=== PATIENT | male | born 1955 | race African-American/Black ===

== ENCOUNTER 2016-11-13 01:38 | Emergency (ER) | payer MEDICARE, MEDICAID ==
[~2016-11-13] VITALS: Ht 180.3 cm; Wt 85.7 kg
[~2016-11-13 01:38] MED LIST: ATENOLOL25 MG ORAL; ATORVASTATIN CA10 MG ORAL; AZITHROMYCIN250 MG ORAL; CELEBREX100 MG PO; CEPHALEXIN500 MG ORAL; CIPROFLOXACIN500 M2 ORAL; DICLOFENAC SODI25 MG ORAL; DILAUDID4 MG ORAL; GLUCOTROL XL5 MG PO; KEFLEX500 MG ORAL; LISINOPRIL20 MG ORAL; METFORMIN HCL500 M1 ORAL; NAPROXEN500 M2 ORAL; NKM; PHENERGAN6.25 MG/5 ORAL; SIMVASTATIN5 MG PO; SPIRIVA18 MCG INH; VICODIN1 TAB PO; VITAMIN AND MI1 EACH PO; ZINC SULFATE220 M1 ORAL; ZYPREXA
[2016-11-13 02:00] VITALS: BP 145/89
[2016-11-13] MEDS ORDERED: GABAPENTIN300 MG ORAL (02:44)
--- NOTE | 2016-11-13 02:44 | Emergency Room Report ---
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 For last 4 days he complaining of neck pain and pain going down his left shoulder and arm. Not trauma. Pain is throbbing in nature. Pain medication not helping. No trauma. No fever chill. Pain is 9/10. Sharp in nature. Allergies: Coded Allergies: No Known Allergies (Verified , 09/27/06) Patient History Past Medical History: see triage record, old chart reviewed Past Surgical History: other Pertinent Family History: none Social History: Denies: smoking Immunizations: other Reviewed Nursing Documentation: PMH: Agreed, PSxH: Agreed Nursing Documentation-PMH Hx Cardiac Problems: Yes Hx Hypertension: Yes - HYPERLIPIDEMIA Hx Pacemaker: No Hx Asthma: No Hx COPD: Yes Hx Diabetes: Yes Hx Cancer: Yes - PROSTATE CANCER Hx Gastrointestinal Problems: No Hx Dialysis: No Hx Neurological Problems: No Hx Cerebrovascular Accident: No Hx Seizures: No Review of Systems Eye: Denies: blurred vision, eye pain ENT: Denies: ear pain, nose congestion, throat swelling Respiratory: Denies: cough, shortness of breath Cardiovascular: Denies: chest pain, palpitations Gastrointestinal: Denies: abdominal pain, diarrhea, nausea, vomiting Musculoskeletal: Denies: back pain, joint pain Skin: Denies: rash Neurological: Denies: headache, numbness Endocrine: Denies: increased thirst, increased urine Hematologic/Lymphatic: Denies: easy bruising All Other Systems: negative except mentioned in HPI Physical Exam Vital Signs Date Time Temp Pulse Resp B/P Pulse Ox O2 Delivery O2 Flow Rate FiO2 11/13/16 01:54 98.4 68 18 157/92 97 Room Air vitals with htn Sp02 EP Interpretation: reviewed, normal General Appearance: well appearing, no apparent distress, alert Head: normocephalic, atraumatic Eyes: bilateral eye EOMI, bilateral eye PERRL ENT: hearing grossly normal, normal pharynx Neck: full range of motion, supple, no meningismus Respiratory: chest non-tender, lungs clear, normal breath sounds Cardiovascular #1: regular rate, rhythm, no murmur Gastrointestinal: normal bowel sounds, non tender, no mass, no organomegaly, no bruit, non-distended Musculoskeletal: back normal, gait/station normal, normal range of motion Psychiatric: mood/affect normal Skin: warm/dry Medical Decision Making Diagnostic Impression: Primary Impression: Cervical radiculopathy ER Course Present with radiculopathy of the cervical spine. No evidence of cauda equina syndrome, spinal epidural abscess or neoplastic process. We'll discharge home. Last Vital Signs Date Time Temp Pulse Resp B/P Pulse Ox O2 Delivery O2 Flow Rate FiO2 11/13/16 01:54 98.4 68 18 157/92 97 Room Air Status: improved Disposition: HOME, SELF-CARE Condition: Stable Scripts Gabapentin* (GABAPENTIN*) 300 Mg Capsule 300 MG ORAL THREE TIMES A DAY, #60 CAP 0 Refills Prov: KWAN TALLEY M.D. 11/13/16 Additional Instructions: Followup with your Dr. in 7 days. Return if worse. KWAN TALLEY M.D. Nov 13, 2016 02:44
[2016-11-13] MEDS ORDERED: Ketorolac 60mg Inj IM ONE (02:45)
[2016-11-13 02:55] VITALS: BP 130/79
== END 2016-11-13 02:55 | disposition home or self-care (01) ==
LOC: EMR 02:20
DX: M54.12 Radiculopathy, cervical region (principal); M51.36 Other intervertebral disc degeneration, lumbar region; E78.5 Hyperlipidemia, unspecified; J44.9 Chronic obstructive pulmonary disease, unspecified; E11.9 Type 2 diabetes mellitus without complications; Z85.46 Personal history of malignant neoplasm of prostate
CPT/HCPCS: 96372; 99283

== ENCOUNTER 2017-01-05 13:06 | Emergency (ER) | payer MEDICARE, MEDICAID ==
[~2017-01-05] VITALS: Ht 180.3 cm; Wt 85.3 kg
[~2017-01-05 13:06] MED LIST changes: +GABAPENTIN300 MG ORAL
[2017-01-05 13:09] VITALS: BP 141/91
[2017-01-05] MEDS ORDERED: NKM (13:14)
[2017-01-05] MEDS ORDERED: Methocarbamol 750mg tab ORAL ONE (13:30)
[2017-01-05] MEDS ORDERED: Ketorolac 30mg Inj IM ONE (13:30)
[2017-01-05] MEDS ORDERED: ROBAXIN-750750 MG PO (14:04)
[2017-01-05] MEDS ORDERED: IBUPROFEN600 MG ORAL (14:04)
[2017-01-05 14:09] VITALS: BP 137/90
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
== END 2017-01-05 14:25 | disposition home or self-care (01) ==
LOC: EMR 13:43
DX: S16.1XXA Strain of muscle, fascia and tendon at neck level, initial encounter (principal); V78.6XXA Passenger on bus injured in noncollision transport accident in traffic accident, initial encounter; Y92.811 Bus as the place of occurrence of the external cause; I10 Essential (primary) hypertension; J44.9 Chronic obstructive pulmonary disease, unspecified; Z85.46 Personal history of malignant neoplasm of prostate; E11.9 Type 2 diabetes mellitus without complications; E78.5 Hyperlipidemia, unspecified
CPT/HCPCS: 96372; 99284; J1885

== ENCOUNTER 2017-01-08 02:12 | Emergency (ER) | payer MEDICARE, MEDICAID ==
[~2017-01-08] VITALS: Ht 182.9 cm; Wt 81.6 kg
[~2017-01-08 02:12] MED LIST changes: +IBUPROFEN600 MG ORAL; +ROBAXIN-750750 MG PO
[2017-01-08 02:43] VITALS: BP 145/90
[2017-01-08] MEDS ORDERED: Norco 5mg/325mg tab ORAL ONE (02:45)
[2017-01-08] MEDS ORDERED: CYCLOBENZAPRINE10 MG ORAL (02:45)
[2017-01-08] MEDS ORDERED: Cyclobenzaprine 10mg Tab ORAL ONE (02:45)
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
[2017-01-08 02:51] VITALS: BP 145/90
== END 2017-01-08 02:50 | disposition home or self-care (01) ==
LOC: EMR 02:44
DX: S16.1XXA Strain of muscle, fascia and tendon at neck level, initial encounter (principal); W22.8XXA Striking against or struck by other objects, initial encounter; Y92.811 Bus as the place of occurrence of the external cause; J44.9 Chronic obstructive pulmonary disease, unspecified; I10 Essential (primary) hypertension; E78.5 Hyperlipidemia, unspecified; E11.9 Type 2 diabetes mellitus without complications; Z85.46 Personal history of malignant neoplasm of prostate
CPT/HCPCS: 99283

== ENCOUNTER 2017-02-19 01:04 | Emergency (ER) | payer MEDICARE, MEDICAID ==
[~2017-02-19] VITALS: Ht 180.3 cm; Wt 86.2 kg
[~2017-02-19 01:04] MED LIST changes: +CYCLOBENZAPRINE10 MG ORAL
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
[2017-02-19] MEDS ORDERED: PERCOCET 5-3251 EACH ORAL (01:33)
[2017-02-19 01:42] VITALS: BP 151/91
[2017-02-19] MEDS ORDERED: oxyCODONE HCL/Acetaminophen 5/325mg ORAL ONE (01:45)
== END 2017-02-19 01:42 | disposition home or self-care (01) ==
LOC: EMR 01:26
DX: M54.2 Cervicalgia (principal); G89.29 Other chronic pain; J44.9 Chronic obstructive pulmonary disease, unspecified; E71.19 Other disorders of branched-chain amino-acid metabolism; Z85.46 Personal history of malignant neoplasm of prostate
CPT/HCPCS: 99283

== ENCOUNTER 2017-02-28 21:53 | Emergency (ER) | payer MEDICARE, MEDICAID ==
[~2017-02-28] VITALS: Ht 180.3 cm; Wt 86.2 kg
[~2017-02-28 21:53] MED LIST changes: +PERCOCET 5-3251 EACH ORAL
[2017-02-28] MEDS ORDERED: NORCO 5-325 TA1 EACH ORAL (22:27)
[2017-02-28] MEDS ORDERED: COLACE100 MG ORAL (23:11)
--- NOTE | 2017-02-28 23:16 | Emergency Room Report ---
History of Present Illness General Chief Complaint: Skin Rash/Abscess Source: Patient Present Illness HPI Patient is 61-year-old male who presented after increased rectal area along. Patient noted this earlier in the day. Patient stated he had prior history of prostate cancer. Patient states he is followed by oncologist. He denied any abdominal pain. He had not been having fever. Patient denied any bleeding or redness to the area. Patient is type II diabetic. Allergies: Coded Allergies: CODEINE (Verified Allergy, Unknown, 02/19/17) Patient History Past Medical History: see triage record Reviewed Nursing Documentation: PMH: Agreed, PSxH: Agreed Nursing Documentation-PMH Hx Cardiac Problems: Yes Hx Hypertension: Yes - HYPERLIPIDEMIA Hx Pacemaker: No Hx Asthma: No Hx COPD: Yes Hx Diabetes: Yes - TYPE 2 Hx Cancer: Yes - PROSTATE CANCER (SURGERY) Hx Gastrointestinal Problems: No Hx Dialysis: No Hx Neurological Problems: No Hx Cerebrovascular Accident: No Hx Seizures: No Review of Systems All Other Systems: negative except mentioned in HPI Physical Exam Vital Signs Date Time Temp Pulse Resp B/P (MAP) Pulse Ox O2 Delivery O2 Flow Rate FiO2 02/28/17 22:23 98.1 63 14 139/83 97 Room Air General Appearance: well appearing, no apparent distress, alert, GCS 15, non- toxic Head: normocephalic, atraumatic ENT: hearing grossly normal, normal voice Neck: full range of motion, supple Respiratory: no respiratory distress, speaking full sentences Rectal: hemorrhoids Musculoskeletal: no calf tenderness Neurologic: normal gait Psychiatric: mood/affect normal Skin: no rash Medical Decision Making Diagnostic Impression: Primary Impression: Hemorrhoid ER Course Patient presented for rectal pain. Differential diagnoses include was noted to hemorrhoids, abscess, prostate mass, rectal cancer among others. Patient's benign exam and does not appear to require any further imaging or laboratory testing at this time. Patient appears to have a nonthrombosed hemorrhoid. Patient is advised followup with his primary care physician for recheck and easy loosefitting clothing sitz bath. The patient was returning having worsening swelling increased pain or other concerns.Patient was advised followup with his oncologist for further evaluation as well. Last Vital Signs Date Time Temp Pulse Resp B/P (MAP) Pulse Ox O2 Delivery O2 Flow Rate FiO2 02/28/17 22:23 98.1 63 14 139/83 97 Room Air Status: improved Disposition: HOME, SELF-CARE Condition: Stable Scripts Docusate Sodium* (COLACE*) 100 Mg Capsule 100 MG ORAL TWICE A DAY, #30 CAP Prov: Yogi Church 02/28/17 Patient Instructions: Hemorrhoids Yogi Church Feb 28, 2017 23:16
[2017-02-28 23:36] VITALS: BP_SYST 135; BP_SYST 139; BP_DIAS 83; BP_DIAS 88
== END 2017-02-28 23:38 | disposition home or self-care (01) ==
LOC: EMR 22:43
DX: K64.9 Unspecified hemorrhoids (principal); E11.9 Type 2 diabetes mellitus without complications; Z85.46 Personal history of malignant neoplasm of prostate
CPT/HCPCS: 99283

== ENCOUNTER 2017-11-20 07:05 | Emergency (ER) | payer MEDICARE, MEDICAID ==
[~2017-11-20] VITALS: Ht 180.3 cm; Wt 85.7 kg
[~2017-11-20 07:05] MED LIST changes: +COLACE100 MG ORAL; +NORCO 5-325 TA1 EACH ORAL
[2017-11-20 07:18] VITALS: BP 151/5
--- NOTE | 2017-11-20 08:25 | Diagnostic Imaging Report ---
EXAM: CT Head Without Intravenous Contrast CLINICAL HISTORY: AMS TECHNIQUE: Axial computed tomography images of the head/brain without intravenous contrast. CTDI is 70 mGy and DLP is 1420 mGy-cm. One or more of the following dose reduction techniques were used: automated exposure control, adjustment of the mA and/or kV according to patient size, use of iterative reconstruction technique. COMPARISON: September 12, 2013 FINDINGS: Brain: Unremarkable. No hemorrhage. Age-appropriate white matter appearance. No CT evidence of acute infarct. Ventricles: Unremarkable. No ventriculomegaly. Bones/joints: Unremarkable. No acute fracture. Soft tissues: Unremarkable. Sinuses: Unremarkable as visualized. No acute sinusitis. Mastoid air cells: Unremarkable as visualized. No mastoid effusion. Other findings: IMPRESSION: No acute findings.
[2017-11-20] MEDS ORDERED: IBUPROFEN600 MG ORAL (08:28)
[2017-11-20 08:34] VITALS: BP 163/94
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
== END 2017-11-20 08:34 | disposition home or self-care (01) ==
LOC: EMR 07:52
DX: S09.90XA Unspecified injury of head, initial encounter (principal); V43.52XA Car driver injured in collision with other type car in traffic accident, initial encounter; Y92.410 Unspecified street and highway as the place of occurrence of the external cause; I10 Essential (primary) hypertension; E78.5 Hyperlipidemia, unspecified; J44.9 Chronic obstructive pulmonary disease, unspecified; E11.9 Type 2 diabetes mellitus without complications; Z85.46 Personal history of malignant neoplasm of prostate; Z88.6 Allergy status to analgesic agent
CPT/HCPCS: 70450; 99284

== ENCOUNTER 2018-05-06 23:15 | Emergency (ER) | payer MEDICARE, MEDICAID ==
[~2018-05-06] VITALS: Ht 180.3 cm; Wt 77.1 kg
[~2018-05-06 23:15] MED LIST changes: +LIDODERM700 M1 TOPIC; +ROBAXIN500 MG PO; +TYLENOL EXTRA500 MG ORAL
--- NOTE | 2018-05-06 23:18 | NUR ---
ED Nurse Note: Pt walked into ER stating that he maybe need to see a Psychiatrist. pt stats that he wants to have "his brain evaluated."
[2018-05-06 23:25] VITALS: BP 155/91
[2018-05-06] MEDS ORDERED: VICTOZA 2-0.6 MG/0.1 SUBQ (23:27)
[2018-05-06] MEDS ORDERED: ATORVASTATIN CA10 MG ORAL (23:39)
[2018-05-06] MEDS ORDERED: GABAPENTIN100 MG ORAL (23:42)
[2018-05-06 23:56] LABS: APPEARANCE,URINE CLEAR; BILIRUBIN, URINE NEGATIVE (NEGATIVE); COLOR,URINE PALE YELLOW; GLUCOSE, URINE (UA) NEGATIVE (NEGATIVE); KETONES,URINE NEGATIVE (NEGATIVE); LEUKOCYTE ESTERASE ,URINE NEGATIVE (NEGATIVE); NITRITE,URINE NEGATIVE (NEGATIVE); PH,URINE 7 (4.5-8.0); PROTEIN,URINE NEGATIVE (NEGATIVE); UROBILINOGEN,URINE NORMAL MG/DL (0.0-1.0)
--- NOTE | 2018-05-07 00:17 | Emergency Room Report ---
History of Present Illness General Chief Complaint: General Complaint Source: Patient Present Illness HPI . Patient is a 62-year-old male presented after increased paranoid ideation. Patient states that he had been hearing the voice of his girlfriend in neighbor' s apartment. Patient states that he realizes is not the case. He denies any previous psychiatric history. He reports having a remote history of prostate cancer. He denies any recent fever. He had denied being a smoker. Patient states that he had recently changed his medications. He reports having some chronic history of chronic back pain and normally takes Percocet. This had been ordered from the pharmacy but he had run out of this. Patient denies any vomiting or diarrhea. Patient denies any suicidal thoughts. Patient denies taking any new medications at this time. He states he is taken tramadol in the past with no bad effects.Patient denies any dysuria. Allergies: Coded Allergies: CODEINE (Verified Allergy, Unknown, 02/19/17) Patient History Past Medical History: see triage record Reviewed Nursing Documentation: PMH: Agreed; PSxH: Agreed Nursing Documentation-PMH Past Medical History: No Stated History Hx Cardiac Problems: Yes - High cholest Hx Hypertension: Yes Hx Pacemaker: No Hx Asthma: No Hx COPD: Yes Hx Diabetes: Yes - type 2 Hx Cancer: Yes - prostate 2014 Hx Gastrointestinal Problems: No Hx Dialysis: No History Of Psychiatric Problem: Yes - depression Hx Neurological Problems: No Hx Cerebrovascular Accident: No Hx Seizures: No Review of Systems All Other Systems: negative except mentioned in HPI Physical Exam Vital Signs Date Time Temp Pulse Resp B/P (MAP) Pulse Ox O2 Delivery O2 Flow Rate FiO2 05/06/18 23:18 98.2 76 14 155/91 99 Room Air 05/06/18 23:25 99 General Appearance: well appearing, no apparent distress, alert, GCS 15 Head: normocephalic, atraumatic ENT: hearing grossly normal, normal voice Neck: full range of motion, supple Respiratory: lungs clear, normal breath sounds, no respiratory distress, speaking full sentences Cardiovascular #1: normal inspection, regular rate, rhythm Gastrointestinal: normal inspection Musculoskeletal: normal inspection, digits/nails normal, gait/station normal, normal range of motion, no calf tenderness Neurologic: normal inspection, alert, oriented x3, responsive, licensed psychologist manager III-XII nml as tested, normal gait Psychiatric: normal inspection, judgement/insight normal, memory normal, mood/ affect normal Skin: no rash Medical Decision Making Diagnostic Impression: Primary Impression: Medication reaction ER Course Patient presented for increased paranoid thoughts. Differential diagnosis include was not limited to CVA, intracranial hemorrhage, substance abuse, medication withdrawal among others. Patient appears to have a fixed delusion. Patient does not appear to have any evidence of psychosis at this time. Patient does not appear to be responding to internal stimuli. He denies any suicidal thoughts or dania auditory hallucinations. Patient's urine drug screen was noted to be positive for amphetamine. Patient was advised to follow- up with primary care physician for reevaluation. Patient likely would benefit from outpatient mental health.Patient was advised to follow-up with his physician adjustment of his medications. Labs Test 05/06/18 23:46 Urine Color Pale yellow Urine Appearance Clear Urine pH 7 (4.5-8.0) Urine Specific Rohwer 1.010 (1.005-1.035) Urine Protein Negative (NEGATIVE) Urine Glucose (UA) Negative (NEGATIVE) Urine Ketones Negative (NEGATIVE) Urine Blood Negative (NEGATIVE) Urine Nitrite Negative (NEGATIVE) Urine Bilirubin Negative (NEGATIVE) Urine Urobilinogen Normal MG/DL (0.0-1.0) Urine Leukocyte Esterase Negative (NEGATIVE) Urine Opiates Screen Negative (NEGATIVE) Urine Barbiturates Screen Negative (NEGATIVE) Phencyclidine (PCP) Screen Negative (NEGATIVE) Urine Amphetamines Screen Positive (NEGATIVE) Urine Benzodiazepines Screen Negative (NEGATIVE) Urine Cocaine Screen Negative (NEGATIVE) Urine Marijuana (THC) Screen Negative (NEGATIVE) Last Vital Signs Date Time Temp Pulse Resp B/P (MAP) Pulse Ox O2 Delivery O2 Flow Rate FiO2 05/06/18 23:25 98.2 74 14 155/91 99 Room Air 05/06/18 23:25 99 Status: improved Disposition: HOME, SELF-CARE Condition: Stable Patient Instructions: Substance Abuse Testing Yogi Church MD May 07, 2018 00:17
--- NOTE | 2018-05-07 00:37 | Diagnostic Imaging Report ---
EXAM: CT Head Without Intravenous Contrast CLINICAL HISTORY: AMS TECHNIQUE: Axial computed tomography images of the head/brain without intravenous contrast. CTDI is 70 mGy and DLP is 1424 mGy-cm. One or more of the following dose reduction techniques were used: automated exposure control, adjustment of the mA and/or kV according to patient size, use of iterative reconstruction technique. COMPARISON: 11/20/2017 FINDINGS: Brain: Unremarkable. No hemorrhage. No significant white matter disease. No edema. Ventricles: Unremarkable. No ventriculomegaly. Bones/joints: Remote unchanged bilateral lamina papyracea blow in fractures with orbital fat herniation into ethmoidal air cells. Soft tissues: Unremarkable. Sinuses: Unremarkable as visualized. No acute sinusitis. Mastoid air cells: Unremarkable as visualized. No mastoid effusion. Other findings: Otherwise normal for age unenhanced CT head. IMPRESSION: 1. No acute abnormality. 2. Remote unchanged bilateral lamina papyracea blow in fractures with orbital fat herniation into ethmoidal air cells. 3. Otherwise normal for age unenhanced CT head.
[2018-05-07] MEDS ORDERED: Norco 5mg/325mg tab ORAL ONE (00:45)
--- NOTE | 2018-05-07 01:19 | NUR ---
ED Nurse Note: PT is Dc per ERMD order. pt is alert and orietned times 4. pt has no lacerations noted in ER. pt vital signs are stable. pt status, condition and vital signs have been reported to MD prior to DC. pt instructed to follow up with primary MD as soon as possible. ID band removed. pt left with all belongings. pt left with DC note and was able to teach back DC notes.
[2018-05-07 01:20] VITALS: BP 140/85
== END 2018-05-07 01:19 | disposition home or self-care (01) ==
LOC: EMR 23:43
DX: T88.7XXA Unspecified adverse effect of drug or medicament, initial encounter (principal); T50.905A Adverse effect of unspecified drugs, medicaments and biological substances, initial encounter; Y92.9 Unspecified place or not applicable; J44.9 Chronic obstructive pulmonary disease, unspecified; I10 Essential (primary) hypertension; F32.9 Major depressive disorder, single episode, unspecified; Z85.46 Personal history of malignant neoplasm of prostate; Z88.5 Allergy status to narcotic agent
CPT/HCPCS: 70450; 80307; 81003; 99284

== ENCOUNTER 2018-06-17 16:12 | Emergency (ER) | payer MEDICARE, MEDICAID ==
[~2018-06-17] VITALS: Ht 180.3 cm; Wt 83.0 kg
[~2018-06-17 16:12] MED LIST changes: +GABAPENTIN100 MG ORAL; +VICTOZA 2-0.6 MG/0.1 SUBQ
[2018-06-17 16:24] VITALS: BP 131/81
--- NOTE | 2018-06-17 16:25 | NUR ---
ED Nurse Note: ambulated in to ER due to lower back pain 9/10 x weeks. no recent injury. also c/o incent bite on left forearm.
[2018-06-17] MEDS ORDERED: Bacitracin Oint UD TOPIC ONE (17:15)
[2018-06-17] MEDS ORDERED: Tetanus/Diptheria/Pertussis Vaccine 0.5ml Syr IM ONE (17:15)
--- NOTE | 2018-06-17 18:58 | Diagnostic Imaging Report ---
EXAM: CT Lumbar Spine Without Intravenous Contrast CLINICAL HISTORY: PAIN TECHNIQUE: Axial computed tomography images of the lumbar spine without intravenous contrast. CTDI is 0.25, 14.62 mGy and DLP is 532 mGy-cm. One or more of the following dose reduction techniques were used: automated exposure control, adjustment of the mA and/or kV according to patient size, use of iterative reconstruction technique. COMPARISON: No relevant prior studies available. FINDINGS: Vertebrae: No acute fracture or malalignment. Discs/spinal canal/neural foramina: Degenerative changes of the lower lumbar spine worst at L5-S1 where there is disc height loss and a disc osteophyte complex that results in moderate bilateral neural foraminal stenosis and mild spinal stenosis. Soft tissues: Unremarkable. IMPRESSION: Degenerative changes of the lower lumbar spine worst at L5-S1.
--- NOTE | 2018-06-17 19:08 | Emergency Room Report ---
History of Present Illness General Chief Complaint: Lower Back Pain or Injury Source: Patient, Medical Record Present Illness HPI 62-year-old male presents to the emergency department complaining of 9 out of 10 in severity localized lower midline back pain that has been progressive over the course of several weeks. Patient denies trauma or fall and he states that he is prescribed strong pain medications for which she has been taking and have not provided him any relief. Patient denies recent spinal procedures he does report a history of prostate cancer. 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 He denies fevers or chills he denies saddle anesthesia but he does report paresthesias down the sides of his legs into his feet. Patient also states that he has a history of diabetes and diabetic neuropathy for which he takes gabapentin and states that this also does not provide relief of his symptoms. He denies urinary retention, urinary incontinence or bowel incontinence. Allergies: Coded Allergies: CODEINE (Verified Allergy, Unknown, 02/19/17) Nursing Documentation-[facility] Past Medical History: No History, Except For Hx Cardiac Problems: No - High cholest Hx Hypertension: Yes Hx Pacemaker: No Hx Asthma: No Hx COPD: Yes Hx Diabetes: Yes - type 2 Hx Cancer: Yes - prostate 2014 Hx Gastrointestinal Problems: No Hx Dialysis: No Hx Neurological Problems: No Hx Cerebrovascular Accident: No Hx Seizures: No Review of Systems All Other Systems: negative except mentioned in HPI Physical Exam Vital Signs Date Time Temp Pulse Resp B/P (MAP) Pulse Ox O2 Delivery O2 Flow Rate FiO2 06/17/18 16:16 98.6 90 18 131/81 95 Room Air Sp02 EP Interpretation: reviewed, normal General Appearance: no apparent distress, alert, GCS 15, non-toxic Head: normocephalic, atraumatic Eyes: bilateral eye normal inspection, bilateral eye PERRL ENT: hearing grossly normal, normal voice Neck: full range of motion Respiratory: lungs clear, normal breath sounds, speaking full sentences Cardiovascular #1: regular rate, rhythm Cardiovascular #2: 2+ dorsalis pedis (R) - Posterior tibial checked bilaterally , 2+ dorsalis pedis (L) Gastrointestinal: non tender, soft Rectal: black stool Genitourinary: normal inspection, no CVA tenderness Musculoskeletal: back normal, gait/station normal - with cane assistance, normal range of motion, other - TTP to the midline lumbar spine, no paraspinal msk ttp. no erythema, warmth or obvious deformity on exam Neurologic: alert, oriented x3, responsive, motor strength/tone normal, sensory intact, speech normal, grossly normal Psychiatric: judgement/insight normal Skin: normal color, no rash, warm/dry, well hydrated Medical Decision Making PA Attestation Dr. Church is my supervising Physician whom patient management has been discussed with. Diagnostic Impression: Primary Impression: Lumbar degenerative disc disease Additional Impressions: Back pain Qualified Codes: M54.41 - Lumbago with sciatica, right side; M54.42 - Lumbago with sciatica, left side Open wound ER Course 24-year-old female presents to the emergency department complaining of 6 out of 10 in severity right lower quadrant abdominal pain progressive 1 week. Patient reports constant dull ache with intermittent sharp episodes of pain. Patient denies fevers, chills, nausea or vomiting. Patient denies vaginal discharge or bleeding. Patient states that her next her menstrual cycle is not due for 2 weeks she denies suspicion of . Patient states that her pain is localized in the right lower quadrant and will on occasion radiate backwards her low back trauma or fall she denies constipation or diarrhea. She denies suspicion of STI eyes denies dysuria she does report increase in urinary frequency and strong odor of the urine she denies urgency or hematuria. Ddx considered: epidural abscess, fracture, sprain/strain, meningitis, spinal chord injury, sciatica, cauda equina, Pyelonephritis, renal calculi just to name a few. Vital signs reviewed and are WNL during ED visit. Pt. is afebrile with no signs of infection No new symptoms, and denies recent trauma. No saddle anesthesia noted, Pt. denies incontinence Neurovascular is intact ROM is limited due to pain ORDERS: none warranted at this time. INTERVENTIONS: - Lidoderm TP CT L-Spine: no acute fractures or malalignments degenerative changes in the lower lumbar spine worse at L5-S1 some disc height loss and disc osteophyte complex the results of moderate bilateral neural foraminal stenosis---Per official radiology report- Please see report for specific details. D/W Pt. that for further pain management is it recommended to consult PCP or a Chronic Pain management doctor. A provider who can safely prescribe controlled substances with close follow up. DISCHARGE: At this time pt. is stable for d/c to home. Will provide printed patient care instructions, and any necessary prescriptions. Care plan and follow up instructions have been discussed with the patient prior to discharge. CT/MRI/US Diagnostic Results CT/MRI/US Diagnostic Results : Imaging Test Ordered: CT L-Spine No Contrast Impression CT L-Spine: no acute fractures or malalignments degenerative changes in the lower lumbar spine worse at L5-S1 some disc height loss and disc osteophyte complex the results of moderate bilateral neural foraminal stenosis---Per official radiology report- Please see report for specific details. Last Vital Signs Date Time Temp Pulse Resp B/P (MAP) Pulse Ox O2 Delivery O2 Flow Rate FiO2 06/17/18 16:24 98.6 90 18 131/81 95 Room Air Disposition: HOME, SELF-CARE Condition: Stable Scripts Mupirocin* (MUPIROCIN*) 22 Gm Oint...g. 1 APPLIC TOPIC THREE TIMES A DAY, #22 GM Prov: Genoveva Hodgson 06/17/18 Lidocaine (Lidoderm) 1 Each Adh..patch 1 PATCH TOPIC DAILY, #30 PATCH 0 Refills Patch(es) may remain in place for up to 12 hours in any 24-hour period. Prov: Genoveva Hodgson 06/17/18 Referrals: NOT CHOSEN IPA/MD,REFERRING (PCP) Departure Forms: Return to Work Return to Work Date: Jun 21, 2018 Work Restrictions: No Heavy Lifting, No Prolonged Standing Other Restrictions: Limited Physical activity x 1 week. Return to Full Activity: Jun 24, 2018 Patient Instructions: Degenerative Disk Disease Additional Instructions: Take medications as directed. Follow up with a Primary Care Provider in 3-5 days, even if your symptoms have resolved. --Please review list of primary care clinics, if you do not already have a primary care provider Return sooner to ED if new symptoms occur, or current symptoms become worse. Do not drink alcohol, drive, or operate heavy machinery while taking [ ] as this may cause drowsiness. - Please note that this Emergency Department Report was dictated using [employer]ek[employer] technology software, occasionally this can lead to erroneous entry secondary to interpretation by the dictation equipment. Genoveva Hodgson Jun 17, 2018 19:08
--- NOTE | 2018-06-17 19:12 | NUR ---
HAND-OFF: Report given to KORY Myers. No s/s of distress.
[2018-06-17] MEDS ORDERED: LIDODERM700 M1 TOPIC (19:34)
[2018-06-17] MEDS ORDERED: MUPIROCIN22 GM TOPIC (19:37)
[2018-06-17 19:45] VITALS: BP 128/81
--- NOTE | 2018-06-17 19:45 | NUR ---
ED Nurse Note: Pt cleared DC by RAYMUNDO Tomas. Pt is A/Ox4, VSS, DC instruction and prescriptions given, pt verbalized understanding. ID wristband removed. All belongings given to pt. Pt ambulated out of ER with steady gait.
== END 2018-06-17 19:45 | disposition home or self-care (01) ==
LOC: EMR 16:59
DX: M51.36 Other intervertebral disc degeneration, lumbar region (principal); S51.802A Unspecified open wound of left forearm, initial encounter; X58.XXXA Exposure to other specified factors, initial encounter; Y92.9 Unspecified place or not applicable; Z23 Encounter for immunization; I10 Essential (primary) hypertension; J44.9 Chronic obstructive pulmonary disease, unspecified; E11.9 Type 2 diabetes mellitus without complications; Z85.46 Personal history of malignant neoplasm of prostate
CPT/HCPCS: 72131; 90471; 90715; 99284

== ENCOUNTER 2020-06-25 18:20 | Emergency (ER) | payer MEDICARE, MEDICAID ==
[~2020-06-25] VITALS: Ht 180.3 cm; Wt 86.2 kg
[~2020-06-25 18:20] MED LIST changes: +MUPIROCIN22 GM TOPIC
[2020-06-25] MEDS ORDERED: CEPHALEXIN500 MG ORAL (18:40)
[2020-06-25 18:50] VITALS: BP 140/98
--- NOTE | 2020-06-25 18:50 | Emergency Room Report ---
History of Present Illness General Chief Complaint: Skin Rash/Abscess Source: Patient Present Illness HPI 64-year-old male here with left hand insect bite. Patient says that he was working in a garden felt an insect bite his left hand. This occurred about 4 hours prior to come to the emergency department. Does not know what kind of insect it was. Tetanus up-to-date. 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 Nursing Documentation-[facility] Past Medical History: No History, Except For Hx Cardiac Problems: No - High cholest Hx Hypertension: Yes Hx Pacemaker: No Hx Asthma: No Hx COPD: Yes Hx Diabetes: Yes - type 2 Hx Cancer: Yes - prostate 2014 Hx Gastrointestinal Problems: No Hx Dialysis: No Hx Neurological Problems: No Hx Cerebrovascular Accident: No Hx Seizures: No Review of Systems All Other Systems: negative except mentioned in HPI Physical Exam Vital Signs Date Time Temp Pulse Resp B/P (MAP) Pulse Ox O2 Delivery O2 Flow Rate FiO2 06/25/20 18:31 98.6 87 16 140/98 (112) 96 Room Air Sp02 EP Interpretation: reviewed, normal General Appearance: no apparent distress, alert, non-toxic Head: normocephalic, atraumatic Eyes: bilateral eye normal inspection, bilateral eye PERRL ENT: hearing grossly normal, normal pharynx, no angioedema, normal voice Neck: full range of motion, supple/symm/no masses Respiratory: chest non-tender, lungs clear, normal breath sounds, speaking full sentences Cardiovascular #1: regular rate, rhythm, no edema Cardiovascular #2: 2+ carotid (R), 2+ carotid (L), 2+ radial (R), 2+ radial (L), 2+ dorsalis pedis (R), 2+ dorsalis pedis (L) Gastrointestinal: normal bowel sounds, non tender, soft, non-distended, no guarding, no rebound Rectal: deferred Genitourinary: normal inspection, no CVA tenderness Musculoskeletal: back normal, normal range of motion, gait/station normal, non- tender, other - Very small punctate wound palmar surface left lateral hand Neurologic: alert, motor strength/tone normal, oriented x3, sensory intact, responsive, speech normal Psychiatric: judgement/insight normal, memory normal, mood/affect normal, no suicidal/homicidal ideation Lymphatic: no adenopathy Medical Decision Making Diagnostic Impression: Primary Impression: Insect bite ER Course 64-year-old male here with left hand insect bite. Patient was hemodynamically stable and neurovascular intact. He had a very small punctate wound in his left hand. Was given a dose of Keflex here in the emergency department and prescription for 7 days of Keflex. Told to return with any worsening symptoms. He expressed understanding and was discharged. Last Vital Signs Date Time Temp Pulse Resp B/P (MAP) Pulse Ox O2 Delivery O2 Flow Rate FiO2 06/25/20 18:31 98.6 87 16 140/98 (112) 96 Room Air Disposition: HOME, SELF-CARE Condition: Stable Scripts Cephalexin* (KEFLEX*) 500 Mg Capsule 500 MG ORAL EVERY 12 HOURS, #14 CAP 0 Refills Prov: Rubin Mackay M.D. 06/25/20 Referrals: [facility] Patient Instructions: Rubin Villalpando M.D. Jun 25, 2020 18:50
--- NOTE | 2020-06-25 18:56 | NUR ---
ER DISCHARGE NOTE: Patient is cleared to be discharged per ERMD, pt is aox4, on room air, with stable vital signs. pt was given dc and prescription instructions, pt was able to verbalize understanding. pt is able to ambulate with steady gait. pt took all belongings.
[2020-06-25] MEDS ORDERED: Cephalexin 500mg cap ORAL ONE (19:00)
== END 2020-06-25 18:55 | disposition home or self-care (01) ==
LOC: EMR 18:40
DX: S60.562A Insect bite (nonvenomous) of left hand, initial encounter (principal); E78.00 Pure hypercholesterolemia, unspecified; I10 Essential (primary) hypertension; J44.9 Chronic obstructive pulmonary disease, unspecified; E11.9 Type 2 diabetes mellitus without complications; Y93.H2 Activity, gardening and landscaping; W57.XXXA Bitten or stung by nonvenomous insect and other nonvenomous arthropods, initial encounter; Y92.017 Garden or yard in single-family (private) house as the place of occurrence of the external cause; Z85.46 Personal history of malignant neoplasm of prostate; Z88.5 Allergy status to narcotic agent; Z79.899 Other long term (current) drug therapy
CPT/HCPCS: 99282